=== PATIENT | female | born 1940 | race Caucasian/White ===

== ENCOUNTER → 2016-10-21 | Outpatient (REF) | payer MEDICARE ==
[2016-10-21 18:30] LABS: PERCENT SATURATION 38.7 % (13.2-37.4)
== END ==
LOC: M LAB REF 16:33
PROVIDERS: ATTEND Internal Medicine Medical Oncology
DX: C50.919 Malignant neoplasm of unspecified site of unspecified female breast (principal)

== ENCOUNTER → 2016-10-24 | Outpatient (CLI) | payer MEDICARE ==
--- NOTE | 2016-10-24 14:07 | REP ---
WHOLE BODY BONE SCAN: 10/24/2016 COMPARISON: Bone scan 04/16/2007, CT chest 04/16/2007. CLINICAL HISTORY: Breast cancer. Neck and right shoulder pain. TECHNIQUE: 21.5 mCi technetium 99m MDP with whole body delayed anterior and posterior, oblique anterior and posterior pelvis and chest with lateral views of the skull, cervical spine, knees, and feet. FINDINGS: Study again shows some symmetric increased uptake about the sternoclavicular and glenohumeral joints. There is slightly increased uptake in the right more than the left AC joint. The joints show minor increased uptake as do the SI joints. There is minor posterior element uptake in the spine. There is increased uptake in the distal fibula on the right about both ankles and hindfeet. Increased uptake in the anterior left 3rd rib on the previous study is largely resolved. Long bone shows no abnormal uptake. There is increased activity in cervical spine, posterior elements on the right towards the upper aspect of the spine. This has increased compared to the same area with slight increased uptake in 2006. There is no abnormal uptake in the calvarium. Some increased uptake in the paranasal sinuses and also in the right mandible suggesting chronic sinus and dental disease. Activity is seen in both kidneys and the bladder. No other findings. IMPRESSION: 1. Pattern of uptake most consistent with degenerative changes in a symmetric pattern. There is increased uptake distal right fibula which is likely posttraumatic as well as in the ankles and hindfeet, right greater than left. No compelling scintigraphic evidence for bony metastatic disease. Signed by Martell Rubio MD 10/24/2016 04:46 P
== END ==
LOC: M RAD 10:08
PROVIDERS: ATTEND Internal Medicine Medical Oncology
DX: C50.919 Malignant neoplasm of unspecified site of unspecified female breast (principal); M54.2 Cervicalgia; M25.511 Pain in right shoulder
CPT/HCPCS: 78306; A9503

== ENCOUNTER → 2017-05-26 | Outpatient (REF) | payer MEDICARE ==
[2017-05-26 19:17] LABS: FERRITIN 36 NG/ML (8-252); PERCENT SATURATION 17.3 % (13.2-45.0); TOTAL IRON BINDING CAPACITY 336 UG/DL (250-450); TOTAL PROTEIN 7.5 GM/DL (6.4-8.2)
[2017-05-28 12:20] LABS: ALBUMIN 4.28 GM/DL (3.29-5.55); ALBUMIN % 57.1 % (55.8-66.1)
== END ==
LOC: M LAB REF 17:29
PROVIDERS: ATTEND Internal Medicine Medical Oncology
DX: D64.9 Anemia, unspecified (principal)

== ENCOUNTER → 2017-11-26 | Outpatient (REF) | payer MEDICARE ==
[2017-11-26 14:13] LABS: FERRITIN 58 NG/ML (8-252); IRON (FE) 82 UG/DL (50-170); PERCENT SATURATION 23.8 % (13.2-45.0); TOTAL IRON BINDING CAPACITY 345 UG/DL (250-450)
== END ==
LOC: M LAB REF 13:11
DX: C50.919 Malignant neoplasm of unspecified site of unspecified female breast (principal)
CPT/HCPCS: 83550

== ENCOUNTER → 2018-02-26 | Outpatient (REF) | payer MEDICARE, OTHER ==
[2018-02-26 13:50] LABS: FERRITIN 61 NG/ML (8-252); IRON (FE) 57 UG/DL (50-170); PERCENT SATURATION 17.2 % (13.2-45.0); TOTAL IRON BINDING CAPACITY 332 UG/DL (250-450)
== END ==
LOC: M LAB REF 13:07
DX: D50.9 Iron deficiency anemia, unspecified (principal)
CPT/HCPCS: 83550

== ENCOUNTER → 2018-09-27 | Outpatient (CLI) | payer MEDICARE ==
[~2018-09-27] MED LIST: AMOX500T2 PO; ASPI1TAB PO; ATEN50TA2 PO; FLUO20TA28 PO; GLIP5TAB8 PO; LISI20TA PO; METF500T13 PO; MULTTAB25 PO; PANT-23 PO; PLAV1TAB2 PO; PROHANCE 279.3MG/ML 5ML VIAL (A9576) As Ordered ONE
--- NOTE | 2018-09-27 13:04 | REP ---
MRI brain without and with IV gadolinium: History: History breast carcinoma. Headaches and dizziness. No comparison brain imaging. Technique: Axial and sagittal imaging planes are utilized for T1 and T2-weighted scans. Sequences include spin-echo, fast spin echo, FLAIR, and diffusion weighted sequences. Gadolinium enhancement dose is 7 ml of intravenous ProHance. MRI findings: No bony calvarial lesion is seen. No intraorbital abnormality is seen. There is no MR evidence of significant paranasal sinus disease. There is diffuse mild to moderate cerebral atrophy. There are periventricular white matter foci of T2 hyperintensity consistent with small vessel changes bilaterally in the supratentorial brain. Diffusion weighted scans show no evidence of restricted diffusion to suggest acute ischemia. There is no evidence of cortical or deep white matter infarct. No hemorrhage is seen. No mass is observed. Post gadolinium enhanced images show enhancement in normal vessels. No abnormal gadolinium enhancement is appreciated. Impression: Diffuse atrophy and small vessel changes. No evidence to suggest intracranial metastatic disease. Electronically Signed by Davidson Escamilla MD 09/27/2018 01:35 P
--- NOTE | 2018-09-27 16:23 | MEDONCTEEN ---
Date/Time of Encounter Date of Encounter: Sep 27, 2018 Time of Encounter: 16:21 Telephone Encounter MRI brain showed no brain metastases. Results discussed with patient. Patient advised that she does not have to come on for a followup appointment. To keep appointment in 6 months. STEPHANE RUSSO MD Sep 27, 2018 16:23
== END ==
LOC: M RAD 11:16
PROVIDERS: ATTEND Internal Medicine Medical Oncology
DX: R51 Headache (principal); R42 Dizziness and giddiness; Z85.3 Personal history of malignant neoplasm of breast
CPT/HCPCS: 70553; A9576

== ENCOUNTER → 2020-05-31 | Outpatient (REF) | payer MEDICARE ==
[~2020-05-31] MED LIST changes: -ASPI1TAB PO; +ASPI81TA26 PO; -LISI20TA PO; +LISI20TA35 PO; +MAGN400T14 PO; +NORV5TAB PO; -PROHANCE 279.3MG/ML 5ML VIAL (A9576) As Ordered ONE; +ZINC1TAB2 PO
[2020-05-31 18:02] LABS: COMPLEMENT C3 113 MG/DL (90-180); COMPLEMENT C4 17 MG/DL (10-40); TOTAL PROTEIN 7.3 GM/DL (6.4-8.2)
[2020-06-05 11:17] LABS: ALBUMIN 4.29 GM/DL (3.29-5.55); ALBUMIN % 58.8 % (55.8-66.1); ALPHA-1-GLOBULIN % 3.8 % (2.9-4.9); ALPHA-1-GLOBULINS 0.28 GM/DL (0.17-0.41); ALPHA-2-GLOBULINS 0.81 GM/DL (0.42-0.99); ALPHA-2-GLOBULINS % 11.1 % (7.1-11.8); BETA-1-GLOBULINS 0.49 GM/DL (0.28-0.60); BETA-1-GLOBULINS % 6.7 % (4.7-7.2); BETA-2-GLOBULINS 0.36 GM/DL (0.19-0.55); BETA-2-GLOBULINS % 4.9 % (3.2-6.5); GAMMA GLOBULIN % 14.7 % (11.1-18.8); GAMMA GLOBULINS 1.07 GM/DL (0.65-1.58)
[2020-06-06 17:11] LABS: ANCA-ATYPICAL <1:20 titer (Neg:<1:20); ANTI DS-DNA AB Negative (Negative); ANTI-GLOMERULAR BASEMENT MEMB 5 units (0-20); ANTINUCLEAR ANTIBODIES DIRECT Negative (Negative); CYTOPLASMIC NEUTROP AB ANCA-C <1:20 titer (Neg:<1:20); FREE KAPPA LIGHT CHAINS SERUM 58.6 mg/L (3.3-19.4); FREE LAMBDA LIGHT CHAINS SERUM 32.1 mg/L (5.7-26.3); KAPPA/LAMBDA RATIO SERUM 1.83 (0.26-1.65); PERINUCLEAR AB ANCA-P <1:20 titer (Neg:<1:20)
== END ==
LOC: M LAB REF 16:56
PROVIDERS: ATTEND Internal Medicine Nephrology
DX: R80.9 Proteinuria, unspecified (principal); N18.30 Chronic kidney disease, stage 3 unspecified

== ENCOUNTER → 2020-06-05 | Outpatient (CLI) | payer MEDICARE ==
--- NOTE | 2020-06-11 09:03 | REP ---
PET CT HISTORY: Lung carcinoma. History of breast carcinoma. TECHNIQUE: 54 minutes following the intravenous injection of an 9.12 mCi dose of F18 fluorodeoxyglucose (FDG), three-dimensional PET CT imaging is acquired from the skull base to the proximal thighs in the usual fashion. PET CT FINDINGS: Head and neck soft tissues are unremarkable. There is a solitary hypermetabolic lytic bone lesion involving the right posterior aspect of the T2 vertebral body near the pedicle. Accompanying CT study demonstrates a lytic lesion in this location measuring 1.1 cm in greatest diameter. Maximum standard uptake value here is 5.17. No other definite bone lesion is appreciated. There is hypermetabolic left internal mammary nodule activity at least at three left parasternal intercostal locations. Maximum standard uptake value is ranging from 3.23 at the most rostral level 5.37 at the most caudal parasternal level. Accompanying CT soft tissue fullness in the internal mammary katya region measures up to 1.8 x 0.8 cm. At the lowest level, the activity appears to surround the costal cartilage. There is no abnormal pulmonary parenchymal hypermetabolic uptake. No abnormal hilar or mediastinal katya uptake is seen. No abnormal hypermetabolic uptake is seen within the abdomen or pelvis. There is mildly hypermetabolic uptake in a 5.8 cm mass in the right subgluteal soft tissues posterior to the right proximal femur and greater trochanter region. Maximum standard uptake value within this retroarticular mass is 3.82. IMPRESSION: * There is mild left internal mammary hypermetabolic katya uptake consistent with left internal mammary katya recurrence. Post left mastectomy. * There is a solitary lytic lesion in the right side of T2 vertebral body, which is hypermetabolic consistent with a metastatic focus. * There is a soft tissue mass posterior to the right hip in the subgluteal soft tissues, which is mildly hypermetabolic as well. This measures 5.8 cm in diameter. MTDD
== END ==
LOC: M PLARAD 13:22
PROVIDERS: ATTEND Internal Medicine
DX: C79.89 Secondary malignant neoplasm of other specified sites (principal); R07.89 Other chest pain; Z85.3 Personal history of malignant neoplasm of breast; Z90.12 Acquired absence of left breast and nipple
CPT/HCPCS: 78815; A9552

== ENCOUNTER → 2020-06-25 | Outpatient (CLI) | payer MEDICARE ==
--- NOTE | 2020-06-25 15:53 | REP ---
INDICATION: UNILATERAL SMALL KIDNEY. COMPARISON: Comparison is made with images from bone scan dated October 24, 2016 and PET-CT images from June 05, 2020.. TECHNIQUE: 8.8 mCi of technetium 99 M Mag 3 is injected and sequential posterior flow and excretory phase imaging is acquired. Renal cortical regions of interest were drawn and time activity curves are planned for renal functional analysis. Pre and postvoid images including the kidneys and bladder were acquired.. FINDINGS: Posterior flow study shows symmetric perfusion of the kidneys bilaterally. Excretory phase images demonstrate that the left kidney is slightly smaller than the right. Symmetrical function and symmetric appearance of the collecting systems bilaterally, 3 minutes. Differential function analysis is asymmetric with 37% of overall renal cortical counts coming from the left kidney and 63% coming from the right. Time to peak activity is very slightly prolonged at 3.0 minutes bilaterally. Time to half max activity is normal bilaterally measured at 8.8 minutes on the left and 9.4 minutes on the right. Pre and postvoid images are unremarkable. There is good bladder emptying. IMPRESSION: Left kidney slightly smaller than the right. Otherwise unremarkable nuclear renal scintigraphy. <Electronically signed by Steve Escamilla > 06/25/20 [id number]
== END ==
LOC: M RAD 13:35
PROVIDERS: ATTEND Internal Medicine Nephrology
DX: N27.0 Small kidney, unilateral (principal)
CPT/HCPCS: 78707; A9562

== ENCOUNTER → 2020-07-23 | Outpatient (CLI) | payer MEDICARE ==
[~2020-07-23] MED LIST changes: +CIPR500T3 PO; +D 1010004 PO; +ESOM1CAP5 PO; +FENO145T7 PO; +FLAG500T PO; +INSULANT SC; +LIDOCAINE 1% MDV 20ML VIAL As Ordered ONE; +LISI-542 PO; +SODIUM BICARBONATE 8.4% INJ 50MEQ 50 ML VIAL As Ordered ONE
[2020-07-23 13:30] VITALS: BP 184/91
--- NOTE | 2020-07-23 15:50 | REP ---
INDICATION: HYPERMETABOLIC [place] UPTAKE. COMPARISON: None. TECHNIQUE: The procedure is performed by Tanya Lara [facility] [[email or web address]], under the direct supervision of Dr. Henderson. The risks and benefits of the procedure were explained to the patient and informed consent was obtained both orally and written. Directly prior to the start of the procedure, a formal timeout was done in the exam room. The left mammary lymph node was localized using CT guidance. Skin was prepped and draped in the usual sterile fashion. Seven ml of buffered lidocaine was used as a local anesthetic. FINDINGS: Using CT guidance a 19/20 gauge coaxial needle biopsy system was inserted and advanced into the left mammary lymph node. Six core biopsy samples were obtained and sent to the lab. Three specimens were sent up in formalin, and the other 3 were sent in RPMI solution. CT images obtained directly after the biopsy show no evidence of pneumothorax, or any vessel damage. After the appropriate amount of monitored convalescence the patient was discharged from the department. IMPRESSION: CT-guided left mammary lymph node biopsy. <Electronically signed by Tanya Lara > 07/23/20 [id number] <Electronically signed by Andriy Henderson > 07/23/20 [id number]
== END ==
LOC: M IRPRO 10:33
PROVIDERS: ATTEND Internal Medicine Medical Oncology
DX: C77.1 Secondary and unspecified malignant neoplasm of intrathoracic lymph nodes (principal); Z85.3 Personal history of malignant neoplasm of breast; Z88.5 Allergy status to narcotic agent

== ENCOUNTER → 2020-08-02 | Outpatient (CLI) | payer MEDICARE ==
[~2020-08-02] MED LIST changes: +IBRA125C PO; +LETR2.5T2 PO; -LIDOCAINE 1% MDV 20ML VIAL As Ordered ONE; +PROHANCE 279.3MG/ML 5ML VIAL As Ordered ONE; -SODIUM BICARBONATE 8.4% INJ 50MEQ 50 ML VIAL As Ordered ONE
--- NOTE | 2020-08-03 08:26 | REP ---
INDICATION: LT MASTECTOMY, BREAST CA RECURRENCE,RECENT(-) MAMMO. There is also history of lung carcinoma. Status post left anterior chest wall parasternal CT-guided needle biopsy. COMPARISON: Comparison PET-CT study June 05, 2020. TECHNIQUE: [facility] [place] MRI imaging was performed with a dedicated breast coil. Axial, coronal, and sagittal T1 and T2 weighted scans were obtained with and without fat saturation in the usual fashion. The study includes dynamically acquired post gadolinium-enhanced imaging with image subtraction. Maximum intensity projection and multi planar reformation imaging is included as well. This study is interpreted with the aid of [id number], an FDA approved computer aided detection (CAD) software program, on a dedicated breast MRI workstation. The gadolinium enhancement dose is 7 mL, half dose protocol, of intravenous ProHance. FINDINGS: Patient is status post left mastectomy. There is infiltrative disease in the left anteromedial chest wall in the left parasternal region corresponding the area which was biopsied under CT guidance on July 23, 2020. This shows low T1 and high T2 signal intensity with ill-defined margins. There is some fullness posteriorly. This is actually chest wall disease rather than internal mammary katya disease. The area in question measures 2.9 cm anterior to posterior by 5.3 cm medial to lateral. It is fairly extensive in craniocaudal dimension. It appears more extensive than the disease displayed on the PET-CT from June 05, 2020. There are 4-5 anterior intercostal space is involved along the costochondral cartilages measuring up to 13 cm in craniocaudal span. The chest wall is area demonstrates mild contrast enhancement, below threshold for ChuteaCAD color characterization. There is no evidence of left axillary or supraclavicular or definite internal mammary katya disease. The right breast show scattered fibroglandular elements. No suspicious morphologic abnormality is seen in the right breast on T1 and T2 weighted scans. No suspicious focus of enhancement and/or washout is seen on the right. There is no evidence of right axillary or right chest wall abnormality. Scan is otherwise unremarkable. IMPRESSION: BI-RADS category 6 known recurrent left breast carcinoma.. Findings indicative of left anterior parasternal chest wall recurrence over a large area of the anterior chest wall. The area of involvement appears larger than it did on the PET-CT study of June 05, 2020 although direct comparison between the 2 modalities is difficult. There is no MR evidence of internal mammary, axillary, supraclavicular, or other katya disease. <Electronically signed by Steve Escamilla > 08/03/20 [id number]
== END ==
LOC: M RAD 14:55
PROVIDERS: ATTEND Internal Medicine Medical Oncology
DX: C50.912 Malignant neoplasm of unspecified site of left female breast (principal)
CPT/HCPCS: A9576; C8908

== ENCOUNTER → 2020-09-11 | Outpatient (REF) | payer MEDICARE ==
[~2020-09-11] MED LIST changes: +BACT800T5 PO; +COVI100V IM; +IBRA100C PO; -LISI-542 PO; +LISI-898 PO; -PROHANCE 279.3MG/ML 5ML VIAL As Ordered ONE
[2020-09-17 11:42] LABS: TOTAL PROTEIN 7.2 GM/DL (6.4-8.2)
[2020-09-18 06:32] LABS: ALBUMIN % 58.2 % (55.8-66.1)
[2020-09-18 06:33] LABS: ALBUMIN 4.19 GM/DL (3.29-5.55); ALPHA-1-GLOBULINS 0.29 GM/DL (0.17-0.41); ALPHA-2-GLOBULINS 0.78 GM/DL (0.42-0.99); ALPHA-2-GLOBULINS % 10.9 % (7.1-11.8); BETA-1-GLOBULINS 0.54 GM/DL (0.28-0.60); BETA-1-GLOBULINS % 7.5 % (4.7-7.2); BETA-2-GLOBULINS 0.39 GM/DL (0.19-0.55); BETA-2-GLOBULINS % 5.4 % (3.2-6.5); GAMMA GLOBULINS 1.01 GM/DL (0.65-1.58)
== END ==
LOC: M LAB REF 17:21
PROVIDERS: ATTEND Internal Medicine Nephrology
DX: N18.30 Chronic kidney disease, stage 3 unspecified (principal); R80.9 Proteinuria, unspecified; N39.0 Urinary tract infection, site not specified

== ENCOUNTER → 2020-12-13 | Outpatient (REF) | payer MEDICARE ==
[2020-12-13 20:45] LABS: PERCENT SATURATION 22.1 % (13.2-45.0)
== END ==
LOC: M LAB REF 16:37
PROVIDERS: ATTEND Internal Medicine Nephrology
DX: N18.32 Chronic kidney disease, stage 3b (principal); D63.1 Anemia in chronic kidney disease

== ENCOUNTER → 2021-02-06 | Outpatient (CLI) | payer MEDICARE ==
[~2021-02-06] MED LIST changes: +FENO160T10 PO; +MAGN250T7 PO
== END ==
LOC: M LABSMTC 12:40
PROVIDERS: ATTEND Anesthesiology
DX: Z01.818 Encounter for other preprocedural examination (principal); Z11.52 Encounter for screening for COVID-19

== ENCOUNTER 2021-02-11 07:27 | Day surgery (SDC) | payer MEDICARE ==
[~2021-02-11] VITALS: Ht 160 cm; Wt 66.7 kg
[~2021-02-11 07:27] MED LIST changes: +NS 1,000 ML IV ONE
[2021-02-11] MEDS ORDERED: LIDOCAINE 2% 100MG/5ML SDV (FOR ANES.) As Ordered ONE (08:26)
[2021-02-11] MEDS ORDERED: propofoL 200 MG/20 ML VIAL As Ordered ONE ×2 (08:26→08:46)
[2021-02-11] MEDS ORDERED: fentaNYL 100 MCG/2 ML INJECTION (J3010) As Ordered ONE (08:27)
--- NOTE | 2021-02-11 11:50 | ROOR ---
Patient Name: Olga Garcia Procedure Date: 02/11/2021 9:42 AM Date of : 1940 Age: 80 Room: [facility] Gender: Female Note Status: Finalized Procedure: Upper GI endoscopy Indications: Epigastric abdominal pain, Heartburn Providers: Tono Bryant MD Referring MD: Kiran Graham MD Requesting Provider: Medicines: Monitored Anesthesia Care Complications: No immediate complications. Procedure: Pre-Anesthesia Assessment: - Prior to the procedure, a History and Physical was performed, and patient medications and allergies were reviewed. The patient is competent. The risks and benefits of the procedure and the sedation options and risks were discussed with the patient. All questions were answered and informed consent was obtained. Patient identification and proposed procedure were verified by the physician, the nurse and the anesthesiologist in the procedure room. Mental Status Examination: alert and oriented. Airway Examination: normal oropharyngeal airway and neck mobility. Respiratory Examination: clear to auscultation. CV Examination: normal. Prophylactic Antibiotics: The patient does not require prophylactic antibiotics. Prior Anticoagulants: The patient has taken Plavix (clopidogrel), last dose was 7 days prior to procedure. ASA Grade Assessment: III - A patient with severe systemic disease. After reviewing the risks and benefits, the patient was deemed in satisfactory condition to undergo the procedure. The anesthesia plan was to use monitored anesthesia care (MAC). Immediately prior to administration of medications, the patient was re-assessed for adequacy to receive sedatives. The heart rate, respiratory rate, oxygen saturations, blood pressure, adequacy of pulmonary ventilation, and response to care were monitored throughout the procedure. The physical status of the patient was re-assessed after the procedure. The Endoscope was introduced through the mouth, and advanced to the second part of duodenum. The upper GI endoscopy was accomplished without difficulty. The patient tolerated the procedure well. Findings: The examined esophagus was normal. The Z-line was regular and was found 38 cm from the incisors. Scattered mild inflammation characterized by erythema and friability was found in the gastric antrum. Biopsies were taken with a cold forceps for Helicobacter pylori testing. Verification of patient identification for the specimen was done by the physician and nurse using the patient's name, date and medical record number. Estimated blood loss was minimal. The duodenal bulb and second portion of the duodenum were normal. Impression: - Normal esophagus. - Z-line regular, 38 cm from the incisors. - Gastritis. Biopsied. - Normal duodenal bulb and second portion of the duodenum. Recommendation: - Patient has a contact number available for emergencies. The signs and symptoms of potential delayed complications were discussed with the patient. Return to normal activities tomorrow. Written discharge instructions were provided to the patient. - High fiber diet. - Continue present medications. - Await pathology results. - Follow an antireflux regimen. - Post-Procedure Resumption of Antiplatelet Medications: Restart Plavix (clopidogrel) tomorrow 75 mg PO daily. Refer to primary physician for further adjustment of therapy. - Telephone GI clinic for pathology results in 2 weeks. - Return to GI clinic if persistent symptoms or new symptoms. Procedure Code(s): --- Professional --- 07305, Esophagogastroduodenoscopy, flexible, transoral; with biopsy, single or multiple Diagnosis Code(s): --- Professional --- K29.70, Gastritis, unspecified, without bleeding R10.13, Epigastric pain R12, Heartburn CPT copyright 2019 [employer]. All rights reserved. The codes documented in this report are preliminary and upon playground official review may be revised to meet current compliance requirements. Tono Bryant MD Tono Bryant MD 02/11/2021 11:50:08 AM Electronically signed by Tono Bryant MD Number of Addenda: 0 Note Initiated On: 02/11/2021 9:42 AM Estimated Blood Loss: Estimated blood loss was minimal.
--- NOTE | 2021-02-11 11:59 | ROOR ---
Patient Name: Olga Garcia Procedure Date: 02/11/2021 9:43 AM Date of : 1940 Age: 80 Room: [facility] Gender: Female Note Status: Finalized Procedure: Colonoscopy Indications: High risk colon cancer surveillance: Personal history of colonic polyps Providers: Tono Bryant MD Referring MD: Kiran Graham MD Requesting Provider: Medicines: Monitored Anesthesia Care Complications: No immediate complications. Procedure: Pre-Anesthesia Assessment: - Prior to the procedure, a History and Physical was performed, and patient medications and allergies were reviewed. The patient is competent. The risks and benefits of the procedure and the sedation options and risks were discussed with the patient. All questions were answered and informed consent was obtained. Patient identification and proposed procedure were verified by the physician, the nurse and the anesthesiologist in the procedure room. Mental Status Examination: alert and oriented. Airway Examination: normal oropharyngeal airway and neck mobility. Respiratory Examination: clear to auscultation. CV Examination: normal. Prophylactic Antibiotics: The patient does not require prophylactic antibiotics. Prior Anticoagulants: The patient has taken Plavix (clopidogrel), last dose was 7 days prior to procedure. ASA Grade Assessment: III - A patient with severe systemic disease. After reviewing the risks and benefits, the patient was deemed in satisfactory condition to undergo the procedure. The anesthesia plan was to use monitored anesthesia care (MAC). Immediately prior to administration of medications, the patient was re-assessed for adequacy to receive sedatives. The heart rate, respiratory rate, oxygen saturations, blood pressure, adequacy of pulmonary ventilation, and response to care were monitored throughout the procedure. The physical status of the patient was re-assessed after the procedure. The Colonoscope was introduced through the anus and advanced to the cecum, identified by appendiceal orifice and ileocecal valve. The colonoscopy was performed without difficulty. The patient tolerated the procedure well. The quality of the bowel preparation was good. The terminal ileum, ileocecal valve, appendiceal orifice, and rectum were photographed. Scope insertion time was 4 minutes. Scope withdrawal time was 12 minutes. The total duration of the procedure was 16 minutes. Findings: The perianal and digital rectal examinations were normal. A 15 mm polyp was found in the cecum. The polyp was carpet-like and sessile. The polyp was removed with a hot snare. Resection and retrieval were complete. Verification of patient identification for the specimen was done by the physician and nurse using the patient's name, date and medical record number. Estimated blood loss was minimal. To close a defect after polypectomy, two hemostatic clips were successfully placed. There was no bleeding at the end of the procedure. There was evidence of a prior functional end-to-end colo-colonic anastomosis in the rectum and in the sigmoid colon. This was patent and was characterized by healthy appearing mucosa and visible sutures. The anastomosis was traversed. One suture granuloma was found in the rectum. This is not amenable for removal with endoscopic suture removal scissors due to the size. ( if symptomtic from this, would benefit from Anoscopy and surgical suture removal). Multiple small and large-mouthed diverticula were found from sigmoid to transverse colon. There was no evidence of diverticular bleeding. Non-bleeding external and internal hemorrhoids were found during retroflexion. The hemorrhoids were medium-sized. Impression: - One 15 mm polyp in the cecum, removed with a hot snare. Resected and retrieved. Clips were placed. - Patent functional end-to-end colo-colonic anastomosis, characterized by healthy appearing mucosa and visible sutures. - Suture granuloma in the rectum. - Moderate diverticulosis from sigmoid to transverse colon. There was no evidence of diverticular bleeding. - Non-bleeding external and internal hemorrhoids. Recommendation: - Patient has a contact number available for emergencies. The signs and symptoms of potential delayed complications were discussed with the patient. Return to normal activities tomorrow. Written discharge instructions were provided to the patient. - High fiber diet. - Continue present medications. - Await pathology results. - Post-Procedure Resumption of Antiplatelet Medications: Restart Plavix (clopidogrel) tomorrow 75 mg PO daily. Refer to primary physician for further adjustment of therapy. - Repeat colonoscopy in 3 years for surveillance based on pathology results. - Telephone GI clinic for pathology results in 2 weeks. - Return to GI clinic if persistent symptoms or new symptoms. - Miralax 1 capful (17 grams) in 8 ounces of water PO daily for atleast 7 days and then adjust dose to have one to two soft bowel movements daily. - Return to primary care physician. Procedure Code(s): --- Professional --- 20327, Colonoscopy, flexible; with removal of tumor(s), polyp(s), or other lesion(s) by snare technique Diagnosis Code(s): --- Professional --- Z86.010, Personal history of colonic polyps K63.5, Polyp of colon Z98.0, Intestinal bypass and anastomosis status T81.89XA, Other complications of procedures, not elsewhere classified, initial encounter K64.8, Other hemorrhoids K57.30, Diverticulosis of large intestine without perforation or abscess without bleeding CPT copyright 2019 [employer]. All rights reserved. The codes documented in this report are preliminary and upon server systems administrator review may be revised to meet current compliance requirements. Tono Bryant MD Tono Bryant MD 02/11/2021 11:59:23 AM Electronically signed by Tono Bryant MD Number of Addenda: 0 Note Initiated On: 02/11/2021 9:43 AM Estimated Blood Loss: Estimated blood loss was minimal.
[2021-02-11 12:00] VITALS: BP 179/87
== END 2021-02-11 12:01 | disposition home or self-care (01) ==
LOC: M OPP 07:27
PROVIDERS: ATTEND Internal Medicine Gastroenterology
DX: Z12.11 Encounter for screening for malignant neoplasm of colon (principal); Z86.010 Personal history of colon polyps; K57.30 Diverticulosis of large intestine without perforation or abscess without bleeding; K64.8 Other hemorrhoids; K21.9 Gastro-esophageal reflux disease without esophagitis; C18.9 Malignant neoplasm of colon, unspecified; K29.70 Gastritis, unspecified, without bleeding; R12 Heartburn; G47.30 Sleep apnea, unspecified; Z79.82 Long term (current) use of aspirin; Z79.899 Other long term (current) drug therapy; Z88.2 Allergy status to sulfonamides; Z88.8 Allergy status to other drugs, medicaments and biological substances
CPT/HCPCS: 43239; 45385; 88305; J3010

== ENCOUNTER → 2021-03-14 | Outpatient (REF) | payer MEDICARE ==
[~2021-03-14] MED LIST changes: -NS 1,000 ML IV ONE
== END ==
LOC: M LAB REF 17:07
PROVIDERS: ATTEND Internal Medicine Nephrology
DX: E83.42 Hypomagnesemia (principal)

== ENCOUNTER → 2021-04-03 | Outpatient (CLI) | payer MEDICARE ==
[~2021-04-03] MED LIST changes: +PROHANCE 279.3MG/ML 5ML VIAL As Ordered ONE
--- NOTE | 2021-04-03 21:23 | REPVR ---
PROCEDURE INFORMATION: Exam: MR Head Without and With Contrast Exam date and time: 04/03/2021 5:48 PM Age: 80 years old Clinical indication: Condition or disease; History of cancer (specify primary cancer site): ; Primary cancer: Breast; Additional info: Balance problems, met breast CA TECHNIQUE: Imaging protocol: MR of the head without and with intravenous contrast. Contrast material: PROHANCE; Contrast volume: 7 ml; Contrast route: INTRAVENOUS (IV); COMPARISON: MRI-Brain W/O FOLL BY WITH 09/27/2018 11:43 AM FINDINGS: Brain: Chronic unchanged small degree of nonspecific meningeal thickening and enhancement along the right frontal convexity, stable when compared with prior MRI performed on 09/27/2018. No new areas of abnormal intracranial enhancement. Mild nonspecific T2/FLAIR hyperintensities of the periventricular and deep subcortical white matter, most likely secondary to chronic small vessel ischemic change. No intracranial hemorrhage or extra-axial fluid collection. No evidence of mass effect or midline shift. No restricted diffusion to suggest acute infarct. Cerebral ventricles: Mild prominence of the ventricles and sulci, likely attributed to parenchymal volume loss. Bones/joints: Unremarkable. Paranasal sinuses: Normal as visualized. No acute sinusitis. Mastoid air cells: Chronic unchanged few opacified inferior right mastoid air cells. Orbital cavity: Unremarkable. Soft tissues: Unremarkable. IMPRESSION: 1. No acute intracranial pathology. 2. Chronic findings, as above. Electronically signed by: Guille Gonzalez On 04/03/2021 21:22:54 PM
== END ==
LOC: M RAD 17:03
PROVIDERS: ATTEND Internal Medicine Medical Oncology
DX: C50.919 Malignant neoplasm of unspecified site of unspecified female breast (principal); R26.2 Difficulty in walking, not elsewhere classified
CPT/HCPCS: 70553; A9576

== ENCOUNTER → 2021-04-08 | Outpatient (CLI) | payer MEDICARE ==
[~2021-04-08] MED LIST changes: -PROHANCE 279.3MG/ML 5ML VIAL As Ordered ONE
--- NOTE | 2021-04-12 08:47 | REP ---
INDICATION: RESTAGING LEFT BREAST CANCER. Metastatic breast cancer with left anterior parasternal chest wall recurrence and metastasis to the T2 vertebral body and left internal mammary node. There is also history of colon carcinoma. . COMPARISON: Comparison PET-CT study June 05, 2020.. TECHNIQUE: Fifty-five minutes following the intravenous injection of a 8.83 mCi dose of F-18 FDG, three-dimensional PET scintigraphy is acquired from the skull base to the proximal thighs. Triplanar noncontrast CT scanning is acquired through the same anatomic range for attenuation correction, and image registration with scan parameters optimized to minimize radiation exposure to the patient. PET scintigraphy and CT datasets were fused and displayed on a workstation with multiplanar and projection display capability. FINDINGS: Head and neck soft tissues are unremarkable. There is no evidence of supraclavicular or cervical adenopathy. No abnormal hypermetabolic uptake is seen. In the thorax, the previously noted left parasternal soft tissue fullness is much improved and barely visible. It is no longer hypermetabolic, maximum SUV value 1.3, previously 5.37. There is no other internal mammary or chest wall disease visible in the thorax. There is no evidence of hilar or mediastinal mass or adenopathy. No intrathoracic hypermetabolic uptake is seen. No abnormal pulmonary parenchymal uptake is seen. In the abdomen and pelvis, normal hepatic, splenic, gastrointestinal, and genitourinary FDG distribution is seen. The previously noted soft tissue mass in the right sub gluteal soft tissues posterior to the greater trochanter of the right hip is again seen. On today's CT study, this mass is slightly smaller measuring 4.5 x 3.5 cm, previously 5.8 x 5.0 cm. There is still low level uptake within this lesion, maximum standard uptake value today is 3.70, previously 3.82. No new soft tissue mass is seen. No abnormal hypermetabolic skeletal uptake. IMPRESSION: Improvement is noted since the prior PET-CT in the left parasternal region of the chest wall, left internal mammary lymph node region. No new axillary or chest wall disease is appreciated. No new hypermetabolic focus is seen. The mildly hypermetabolic right sub gluteal soft tissue mass is slightly decreased in size but remains mildly hypermetabolic. Otherwise negative PET scintigraphy. <Electronically signed by Steve Escamilla > 04/12/21 0570
== END ==
LOC: M PLARAD 13:57
PROVIDERS: ATTEND Internal Medicine Medical Oncology
DX: C79.51 Secondary malignant neoplasm of bone (principal); C77.3 Secondary and unspecified malignant neoplasm of axilla and upper limb lymph nodes; C50.912 Malignant neoplasm of unspecified site of left female breast
CPT/HCPCS: 78815; A9552

== ENCOUNTER → 2022-01-20 | Outpatient (CLI) | payer MEDICARE ==
[~2022-01-20] MED LIST changes: +IBRA75CA PO; +ISOS1TAB35 PO; -LISI-898 PO; +LISI5TAB11 PO
== END ==
LOC: M PLARAD 14:41
PROVIDERS: ATTEND Internal Medicine Medical Oncology
DX: C50.811 Malignant neoplasm of overlapping sites of right female breast (principal); Z53.9 Procedure and treatment not carried out, unspecified reason

== ENCOUNTER → 2022-02-24 | Outpatient (CLI) | payer MEDICARE | LOC: M PLARAD 07:55 | PROVIDERS: ATTEND Internal Medicine Medical Oncology | DX: C50.811 Malignant neoplasm of overlapping sites of right female breast (principal) | CPT/HCPCS: 78815; A9552 ==

== ENCOUNTER → 2022-12-29 | Outpatient (CLI) | payer MEDICARE ==
[~2022-12-29] MED LIST changes: +CLOP75TA99 PO; -PLAV1TAB2 PO
== END ==
LOC: M PLARAD 10:07
PROVIDERS: ATTEND Specialist
DX: C50.811 Malignant neoplasm of overlapping sites of right female breast (principal)
CPT/HCPCS: 78815; A9552

== ENCOUNTER → 2024-05-18 | Outpatient (CLI) | payer MEDICARE ==
[~2024-05-18] VITALS: Ht 160 cm; Wt 63.9 kg
[~2024-05-18] MED LIST changes: +AMLO1TAB24; +ATOR40TA75; +DULC5TAB PO; +ESOM1CAP20 PO; -ESOM1CAP5 PO; +GINS100C PO; +GLIP5TAB17 PO; -GLIP5TAB8 PO; +HYDR-3713 PO; +LANTINJ4 SC; +OMEG10002 PO
[2024-05-18 11:08] VITALS: BP 187/83; O2SAT 98
== END ==
LOC: M PAL 10:07
PROVIDERS: ATTEND Nurse Practitioner Adult Health
DX: G89.3 Neoplasm related pain (acute) (chronic) (principal); C18.9 Malignant neoplasm of colon, unspecified; N82.3 Fistula of vagina to large intestine; Z85.3 Personal history of malignant neoplasm of breast; Z51.5 Encounter for palliative care; Z80.3 Family history of malignant neoplasm of breast; Z80.41 Family history of malignant neoplasm of ovary; Z80.8 Family history of malignant neoplasm of other organs or systems; Z88.1 Allergy status to other antibiotic agents; Z88.2 Allergy status to sulfonamides; Z79.02 Long term (current) use of antithrombotics/antiplatelets; Z79.4 Long term (current) use of insulin; Z79.84 Long term (current) use of oral hypoglycemic drugs; Z79.899 Other long term (current) drug therapy; Z90.12 Acquired absence of left breast and nipple; Z90.49 Acquired absence of other specified parts of digestive tract; Z90.710 Acquired absence of both cervix and uterus

== ENCOUNTER → 2024-06-23 | Outpatient (CLI) | payer MEDICARE ==
[~2024-06-23] VITALS: Ht 160 cm; Wt 64.7 kg
[~2024-06-23] MED LIST changes: -AMLO1TAB24; +AMLO1TAB24 PO; -ATOR40TA75; +ATOR40TA75 PO
[2024-06-23 09:35] VITALS: BP 100/71; O2SAT 98
== END ==
LOC: M PAL 09:27
PROVIDERS: ATTEND Nurse Practitioner Adult Health
DX: G89.3 Neoplasm related pain (acute) (chronic) (principal); C18.9 Malignant neoplasm of colon, unspecified; N82.3 Fistula of vagina to large intestine; Z85.3 Personal history of malignant neoplasm of breast; Z51.5 Encounter for palliative care; Z80.3 Family history of malignant neoplasm of breast; Z80.41 Family history of malignant neoplasm of ovary; Z80.8 Family history of malignant neoplasm of other organs or systems; Z88.1 Allergy status to other antibiotic agents; Z88.2 Allergy status to sulfonamides; Z88.8 Allergy status to other drugs, medicaments and biological substances; Z79.02 Long term (current) use of antithrombotics/antiplatelets; Z79.4 Long term (current) use of insulin; Z79.84 Long term (current) use of oral hypoglycemic drugs; Z79.899 Other long term (current) drug therapy; Z90.12 Acquired absence of left breast and nipple; Z90.49 Acquired absence of other specified parts of digestive tract; Z90.710 Acquired absence of both cervix and uterus; Z66 Do not resuscitate; Z98.890 Other specified postprocedural states